=== PATIENT | female | born 2000 | race Two or more races ===

== ENCOUNTER 2024-12-07 18:14 | Emergency (ER) | payer MEDICAID, OTHER ==
[~2024-12-07] VITALS: Ht 167.6 cm; Wt 62.1 kg
--- NOTE | 2024-12-07 18:48 | ED.PDOC ---
COST REDUCTION ENGINEER HPI Comments 24 y/o G1 F, presents to the ED for CC of vaginal bleeding. Patient states, that she has been experiencing vaginal spotting x hours. Patient describes, bleeding to be pink and light in color. Patient relays, that she is currently 4-5 weeks ; has not seen an OB-RELIEF MANAGER provider. Patient denies dysuria, hematuria, abdominal cramping, vaginal cramping, or vaginal discharge. No other symptoms or modifying factors at this time. Time Seen by MD: 18:30 Reviewed Notes: Nurses Notes, Medications, Allergies Allergies: Coded Allergies: NO KNOWN ALLERGIES (Unverified , 12/07/24) Information Source: Patient Mode of Arrival: Ambulatory Timing: Hours Severity: Moderate Vaginal Discharge: None Vaginal Lesions: None Vaginal Mass: None Onset Of Mass/Bleeding: Spontaneous Sexual Activity: Last Consensual [address]: Unknown Control: None History of: Current Blood Type: Unknown Symptoms of Possible : None Associated Signs and Symptoms: Vaginal Bleeding Past Medical History PAST MEDICAL HISTORY: Denies Surgical History: Denies all surgeries RELIEF MANAGER History: Unknown Family History Family History: Unknown Social History Smoker: Non-Smoker Alcohol: Occasionally Drugs: Marijuana Lives In: Home Constitutional: denies: chills, diaphoresis, fatigue, fever, malaise, sweats, weakness, others EENTM: denies: blurred vision, double vision, ear bleeding, ear discharge, ear drainage, ear pain, ear ringing, eye pain, eye redness, hearing loss, mouth pain, mouth swelling, nasal discharge, nose bleeding, nose congestion, nose pain, photophobia, tearing, throat pain, throat swelling, voice changes, others Respiratory: denies: cough, hemoptysis, orthopnea, SOB at rest, shortness of breath, SOB with excertion, stridor, wheezing, others Cardiovascular: denies: chest pain, dizzy spells, diaphoresis, Dyspnea on exertion, edema, irregular heart beat, left arm pain, lightheadedness, palpitations, PND, syncope, others Gastrointestinal: denies: abdomen distended, abdominal pain, blood streaked bowels, constipated, diarrhea, dysphagia, difficulty swallowing, hematemesis, melena, nausea, poor appetite, poor fluid intake, rectal bleeding, rectal pain, vomiting, others Genitourinary: reports: others (vaginal spotting); denies: abnormal vagina bleeding, burning, dyspareunia, dysuria, flank pain, frequency, hematuria, incontinence, pain, , vagina discharge, urgency Neurological: denies: dizziness, fainting, headache, left sided numbness, left sided weakness, numbness, paresthesia, pre-existing deficit, right sided numbness, right sided weakness, seizure, speech problems, tingling, tremors, weakness, others Musculoskeletal: denies: back pain, gout, joint pain, joint swelling, muscle pain, muscle stiffness, neck pain, others Integumetry: denies: bruises, change in color, change in hair/nails, dryness, laceration, lesions, lumps, rash, wounds, others Allergic/Immunocompromised: denies: Difficulty Healing, Frequent Infections, Hives, Itching, others Hematologic/Lymphatic: denies: anemia, blood clots, easy bleeding, easy bruising, swollen glands, others Endocrine: denies: excessive hunger, excessive sweating, excessive thirst, excessive urination, flushing, intolerance to cold, intolerance to heat, unexplained weight gain, unexplained weight loss, others Psychiatric: denies: anxiety, bipolar disorder, depression, hopeless, panic disorder, schizophrenia, sleepless, suicidal, others All Other Systems: Reviewed and Negative Physical Exam General Appearance: No Apparent Distress HEENT: Normal ENT Inspection, Pharynx Normal, TMs Normal Neck: Full Range of Motion, Non-Tender, Normal, Normal Inspection Respiratory: Chest Non-Tender, Lungs Clear, No Accessory Muscle Use, No Respiratory Distress, Normal Breath Sounds Cardiovascular: No Edema, No JVD, No Murmur, No Gallop, Normal Peripheral Pulses, Regular Rate/Rhythm Breast Exam: Deferred Gastrointestinal: No Organomegaly, Non Tender, No Pulsatile Mass, Normal Bowel Sounds, Soft Genitalia: Deferred Pelvic: Deferred Rectal: Deferred Extremities: No calf tenderness, Normal capillary refill, Normal inspection, Normal range of motion, Non-tender, No pedal edema Musculoskeletal : Apperance: Normal Neurologic: Alert, business banking officer II-XII nml as Tested, No Motor Deficits, Normal Affect, Normal Mood, No Sensory Deficits Cerebellar Function: Normal Reflexes: Normal Skin: Dry, Normal Color, Warm Lymphatic: No Adenopathy Was a procedure done? Was a procedure done?: No Differential Diagnosis (RELIEF MANAGER) Vaginal Bleeding: - Inevitable, - Threatened, Menorrhagia, Menstrual Bleeding, UTI, Vaginitis X-Ray, Labs, Meds, VS Vital Signs Date Time Temp Pulse Resp B/P (MAP) Pulse Ox O2 Delivery O2 Flow Rate FiO2 12/07/24 18:40 97.0 113 16 114/78 (90) 99 97.0 Lab Test 12/07/24 21:16 12/07/24 18:05 Range/Units Beta HCG, Quantitative Pending Urine Color Yellow Yellow Urine Clarity Clear Clear Urine pH 6.0 5.0-9.0 Urine Specific [place] 1.030 1.001-1.035 Urine Protein 1+ H Negative Urine Ketones 3+ H Negative Urine Blood Negative Negative /uL Urine Nitrite Negative Negative Urine Bilirubin Negative Negative Urine Urobilinogen 6 Negative mg/dL Urine Leukocyte Esterase 1+ Negative /uL Urine RBC 1 0 - 4 /hpf Urine Microscopic WBC 6 H 0-5 /HPF Urine Squamous Epithelial Cells Few <5 /hpf Urine Bacteria None seen None Seen /hpf Urine Mucus Few None Seen Urine Glucose Normal Normal mg/dL The urine test is positive for UTI The quantitative hCG is pending Based on the quantitative test, we will order an ultrasound The patient was being signed out to Dr. Goyal Time of 1ST Reevaluation: 19:00 Reevaluation 1ST: Unchanged Patient Education/Counseling: Diagnosis, Treatment, Prognosis Family Education/Counseling: Diagnosis, Treatment, Prognosis Departure 1 Departure Time of Disposition: 21:55 Impression: Primary Impression: Vaginal bleeding Disposition: 30 STILL A PATIENT Condition: Fair Critical Care Note Critical Care Time?: No Stability Stability form required: No Heart Score Heart Score: Heart Score Response (Comments) Value History N/A 0 EKG N/A 0 Age N/A 0 Risk Factors N/A 0 Troponin N/A 0 Total 0 I personally scribed for BERNABE SYLVESTER MD ([email or web address]) on 12/07/24 at 18:48. Electronically submitted by Christine Bertrand ([email or web address]). BERNABE SYLVESTER MD Dec 07, 2024 18:48
[2024-12-07 20:59] LABS: Urine Bacteria None Seen /hpf (None Seen)
[2024-12-07 21:18] LABS: Urine Blood Negative /uL (Negative); Urine Clarity Clear (Clear); Urine Color Yellow (Yellow); Urine Mucus FEW (None Seen); Urine Protein, UAD 1+ (Negative); Urine Squamous Epithelial Cell FEW /hpf (<5); Urine Urobilinogen 6 mg/dL (Negative); Urine WBC 6 /HPF (0-5)
--- NOTE | 2024-12-07 23:11 | DVH ---
OB ULTRASOUND <14 WEEKS: HISTORY: vag bleeding TECHNIQUE: Multiple real-time grayscale sonographic images of the pelvis with duplex Doppler color f low, spectral and M-mode analysis. COMPARISON: None FINDINGS: Uterus is anteverted and measures 8.7 X4 0.4 x 6.5 cm there is a gestational sac in the fundus of the uterus. Mean sac diameter is 1.89 cm and there is a subchorionic hemorrhage adjacent to the gestatio nal sac measures approximately 1-1/2 cm in length. Patient has multiple large periuterine vessels. Pa tient May have pelvic congestion syndrome There is a yolk sac measures 3.2 mm and there is a a pole with a crown rump length of 3.7 mm. There is there is heart activity with a heart rate of 115 beats per minute The subchorionic hemorrhage measures 2.35 x 2.1 x 0.6 cm. Gestational age by today's findings is 6 weeks 1 day +/-3 days with estimated date of delivery of Jul. IMPRESSION: 1. Single viable intrauterine in the mid 1st trimester follow-up study before 23 Ca suggest ed to determine the exact relationship between the placenta and the internal os and for investigation of anatomy.
--- NOTE | 2024-12-08 00:03 | ED.PDOC ---
Departure 1 Departure Time of Disposition: 00:02 (Patient with a threatened miscarriage. We will discharge patient home with outpatient follow up) Impression: Primary Impression: Threatened miscarriage Additional Impression: Vaginal bleeding Disposition: HOME / SELF CARE / HOMELESS Condition: Stable Additional Instructions: You have a threatened miscarriage. Your beta hcg level today was 99284. Your ultrasound showed a healthy fetus. You should follow up with OBGYN within three days to recheck your blood work. If your symptoms worsen or you have any other concerns then please return to the ER. Discharged With: Self ALCIDES SELF MD Dec 08, 2024 00:03
[2024-12-08 00:15] VITALS: BP 131/82; PULSE 85; RESP 18; TEMP 98.3; O2SAT 98
== END 2024-12-08 00:20 | disposition home or self-care (01) ==
LOC: ER 18:14
DX: O20.9 Hemorrhage in early pregnancy, unspecified (principal); O20.0 Threatened abortion; F12.90 Cannabis use, unspecified, uncomplicated; Z3A.01 Less than 8 weeks gestation of pregnancy
CPT/HCPCS: 36415; 76801; 81001; 84702